=== PATIENT | female | born 1955 | race African-American/Black ===

== ENCOUNTER 2020-05-21 08:45 | Emergency (ER) | payer MEDICAID ==
[~2020-05-21] VITALS: Ht 154.9 cm; Wt 91.6 kg
[2020-05-21 09:01] VITALS: BP 148/94
== END 2020-05-21 09:18 | disposition home or self-care (01) ==
LOC: ER 08:49
DX: H60.91 Unspecified otitis externa, right ear (principal); I10 Essential (primary) hypertension; E78.00 Pure hypercholesterolemia, unspecified; I48.91 Unspecified atrial fibrillation; Z88.6 Allergy status to analgesic agent
CPT/HCPCS: 82962-TC